=== PATIENT | female | born 1995 | race Caucasian/White ===

== ENCOUNTER → 2024-05-22 07:02 | Outpatient (REF) | payer BC, SELFPAY | LOC: PNTC 07:02 | PROVIDERS: ATTENDING PHYSICIAN Student in an Organized Health Care Education/Training Program | DX: Z36.0 Encounter for antenatal screening for chromosomal anomalies (principal); Z36.82 Encounter for antenatal screening for nuchal translucency | CPT/HCPCS: 36415; 76801; 76813 ==

== ENCOUNTER → 2024-06-18 08:18 | Outpatient (REF) | payer BC, SELFPAY | LOC: PNTC 08:18 | PROVIDERS: ATTENDING PHYSICIAN Student in an Organized Health Care Education/Training Program | DX: O35.5XX0 Maternal care for (suspected) damage to fetus by drugs, not applicable or unspecified (principal) | CPT/HCPCS: 76805 ==

== ENCOUNTER → 2024-08-22 06:59 | Outpatient (REF) | payer BC, SELFPAY | LOC: PNTC 06:59 | PROVIDERS: ATTENDING PHYSICIAN Obstetrics & Gynecology | DX: O35.2 Maternal care for (suspected) hereditary disease in fetus (principal); M06.9 Rheumatoid arthritis, unspecified; O99.213 Obesity complicating pregnancy, third trimester; O35.5XX0 Maternal care for (suspected) damage to fetus by drugs, not applicable or unspecified | CPT/HCPCS: 76816 ==

== ENCOUNTER → 2024-09-19 08:02 | Outpatient (REF) | payer BC, SELFPAY | LOC: PNTC 08:02 | PROVIDERS: ATTENDING PHYSICIAN Obstetrics & Gynecology | DX: Z15.09 Genetic susceptibility to other malignant neoplasm (principal); O35.2XX0 Maternal care for (suspected) hereditary disease in fetus, not applicable or unspecified | CPT/HCPCS: 76816 ==

== ENCOUNTER → 2024-09-20 08:04 | Outpatient (REF) | payer BC, SELFPAY ==
--- NOTE | 2024-09-20 07:28 | PN.DIAED06 ---
Meal Plan - Gestational
- Breakfast
Gestational Diabetes Meal Plan Name: 2000 calories
Breakfast - Total Carbohydrate (grams): 45
Breakfast - Starch Carbohydrate: 2
Breakfast - Fruit Carbohydrate: 0
Breakfast - Milk Carbohydrate: 1
Breakfast - Nonstarchy Vegetables: Yes
Breakfast - Meat/Protein: 1
Breakfast - Fat: 2
- Morning Snack
Morning Snack - Total Carbohydrate (grams): 30
Morning Snack - Starch Carbohydrate: 1
Morning Snack - Fruit Carbohydrate: 0
Morning Snack - Milk Carbohydrate: 1
Morning Snack - Nonstarchy Vegetables: Yes
Morning Snack - Meat/Protein: 0
Morning Snack - Fat: 0
- Lunch
Lunch - Total Carbohydrate (grams): 45
Lunch - Starch Carbohydrate: 1
Lunch - Fruit Carbohydrate: 1
Lunch - Milk Carbohydrate: 1
Lunch - Nonstarchy Vegetables: Yes
Lunch - Meat/Protein: 2
Lunch - Fat: 2
- Afternoon Snack
Afternoon Snack - Total Carbohydrate (grams): 30
Afternoon Snack - Starch Carbohydrate: 1
Afternoon Snack - Fruit Carbohydrate: 1
Afternoon Snack - Milk Carbohydrate: 0
Afternoon Snack - Nonstarchy Vegetables: Yes
Afternoon Snack - Meat/Protein: 1
Afternoon Snack - Fat: 0
- Dinner
Dinner - Total Carbohydrate (grams): 45
Dinner - Starch Carbohydrate: 2
Dinner - Fruit Carbohydrate: 1
Dinner - Milk Carbohydrate: 0
Dinner - Nonstarchy Vegetables: Yes
Dinner - Meat/Protein: 2
Dinner - Fat: 2
- Evening Snack
Evening Snack - Total Carbohydrate (grams): 45
Evening Snack - Starch Carbohydrate: 1
Evening Snack - Fruit Carbohydrate: 1
Evening Snack - Milk Carbohydrate: 1
Evening Snack - Nonstarchy Vegetables: Yes
Evening Snack - Meat/Protein: 1
Evening Snack - Fat: 0
--- NOTE | 2024-09-20 12:23 | PN.DE ---
Diabetes Education
- -
09/20/2024 Diabetes Education for Gestational Diabetes
Patient referred by [facility] for new dx Gestational diabetes
Patient G 1, P 0, edc 11/28/2024.
Provided gestational education booklet and reviewed all aspects of gestational diagnosis. Reviewed her glucose tolerance test results. Reviewed risk factors for gestational diabetes, of which she has 3.
Provided ADA nutrition booklet and reviewed CHO foods, proteins, fats as well as serving sizes and number of servings per meal and snack. Provided 2000 calorie gestational meal plan and reviewed each meal and snack recommended servings. Patient is
able to repeat back appropriate choices.
Patient picked up ordered glucose meter OneTouch Ultra 2. Instructed on steps for testing including site selection for obtaining drop of blood, applying to strip. Instructed to test glucose fasting and 2 hours after each meal. She knows to report
results weekly to [place] .
Patient has my number for further questions.
== END ==
LOC: DES 08:04
PROVIDERS: ATTENDING PHYSICIAN Obstetrics & Gynecology
DX: O24.419 Gestational diabetes mellitus in pregnancy, unspecified control (principal)
CPT/HCPCS: 99078

== ENCOUNTER → 2024-10-17 08:17 | Outpatient (REF) | payer BC, SELFPAY | LOC: PNTC 08:17 | PROVIDERS: ATTENDING PHYSICIAN Obstetrics & Gynecology | DX: Z15.09 Genetic susceptibility to other malignant neoplasm (principal); Z80.0 Family history of malignant neoplasm of digestive organs | CPT/HCPCS: 76816 ==

== ENCOUNTER → 2024-11-14 08:36 | Outpatient (REF) | payer BC, SELFPAY | LOC: PNTC 08:36 | PROVIDERS: ATTENDING PHYSICIAN Obstetrics & Gynecology | DX: O99.210 Obesity complicating pregnancy, unspecified trimester (principal) | CPT/HCPCS: 76816 ==

== ENCOUNTER 2024-11-29 19:27 | Inpatient (IN) | payer BC, SELFPAY ==
[2024-11-29 20:20] VITALS: BMI 37.9
[2024-11-29 20:23] VITALS: BP 134/79
[2024-11-29 20:54] LABS: Glucose - Point of Care 105 mg/dl (70-99)
[2024-11-29 21:15] LABS: % Basophils 0.2 % (0-2); % Eosinophils 0.6 % (0-6); % Immature Granulocytes 0.7 % (0-0.5); % Lymphocytes 19.2 % (20.5-51.1); % Neutrophils 71.3 % (42.2-75.2); Absolute Eosinophils 0.1 10^3/uL (0-0.7); Absolute Immature Granulocytes 0.1 10^3/uL (0-0.05); Absolute Lymphocytes 1.8 10^3/uL (1.2-3.4); Absolute Monocytes 0.8 10^3/uL (0.1-0.6); Absolute Neutrophils 6.7 10^3/uL (1.4-6.5); Hemoglobin 11.2 g/dL (12.0-16.0); Mean Corp Hgb Conc. 33.9 g/dL (33.0-37.0); Mean Corpuscular Hgb 27.9 pg (27.0-31.0); Mean Corpuscular Volume 82.3 fL (81.0-99.0); Mean Platelet Volume 13.1 fL (7.4-10.4); Nucleated Red Blood Cells % 0 %; Platelet Count 170 10^3/uL (130-400); Red Blood Cell Count 4.01 10^6/uL (4.20-5.40); Red Cell Dist. Width 14.5 % (11.5-14.5); White Blood Cell Count 9.5 10^3/uL (4.8-10.8)
[2024-11-29] MEDS: CYTOTEC 25 MICROGRAM VAG (22:58)
[2024-11-30] MEDS: CYTOTEC 50 MICROGRAM PO ×2 (03:05→07:17)
[2024-11-30] MEDS: LR 1000 IV ×4 (03:41→21:59)
[2024-11-30 07:06] LABS: Glucose - Point of Care 71 mg/dl (70-99)
[2024-11-30] MEDS: DELTASONE 5 MG PO (08:17)
[2024-11-30] MEDS: STADOL 1 MG IV (09:23)
[2024-11-30] MEDS: SUBLIMAZE 100 MCG EPIDURAL (12:18)
[2024-11-30] MEDS: FENTANYL/BUPIVACAINE 100 EPIDURAL ×2 (12:23→21:05)
[2024-11-30] MEDS: CYTOTEC PO ×3 (13:29→18:09)
[2024-11-30] MEDS: SOLU-CORTEF 100 MG IV (13:59)
[2024-11-30 17:15] LABS: Glucose - Point of Care 91 mg/dl (70-99)
[2024-11-30] MEDS: PENICILLIN 110 UNITS IV (17:28)
[2024-11-30] MEDS: SOLU-CORTEF 50 MG IV (19:37)
[2024-11-30 21:15] LABS: Glucose - Point of Care 120 mg/dl (70-99)
[2024-11-30] MEDS: PENICILLIN 55 UNITS IV (22:02)
[2024-12-01] MEDS: SOLU-CORTEF IV (02:25)
[2024-12-01] MEDS: PENICILLIN IV (02:26)
[2024-12-01] MEDS: CYTOTEC PO (03:40)
[2024-12-01 06:18] LABS: Hematocrit 30.9 % (37.0-47.0); Hemoglobin 10.5 g/dL (12.0-16.0)
[2024-12-01] MEDS: SENOKOT-S 1 TABLET PO (08:02)
[2024-12-01] MEDS: DELTASONE 10 MG PO (08:02)
[2024-12-01] MEDS: TYLENOL 650 MG PO ×2 (12:37→20:46)
[2024-12-01] MEDS: TUMS CHEWABLE TABLET 400 MG PO (20:47)
[2024-12-02] MEDS: TYLENOL 650 MG PO ×2 (02:19→06:22)
[2024-12-02] MEDS: DELTASONE 10 MG PO (08:18)
[2024-12-02] MEDS: SENOKOT-S 1 TABLET PO (08:18)
[2024-12-04 14:39] LABS: Syphilis/T. pallidum Ab Reflex Negative (Negative)
== END 2024-12-02 11:48 | disposition home or self-care (01) | DRG 807 ==
LOC: LDRP 19:27
PROVIDERS: Obstetrics & Gynecology; ADMITTING PHYSICIAN Obstetrics & Gynecology; FAMILY PHYSICIAN Physician Assistant Medical
PROC: 3E0P7VZ Introduction of Hormone into Female Reproductive, Via Natural or Artificial Opening (ICD-10-PCS; 2024-11-29)
PROC: 0KQM0ZZ Repair Perineum Muscle, Open Approach (ICD-10-PCS; 2024-11-30)
PROC: 10E0XZZ Delivery of Products of Conception, External Approach (ICD-10-PCS; 2024-11-30)
DX: O48.0 Post-term pregnancy (principal); Z37.0 Single live birth; Z3A.40 40 weeks gestation of pregnancy; O77.0 Labor and delivery complicated by meconium in amniotic fluid; O24.420 Gestational diabetes mellitus in childbirth, diet controlled; O99.824 Streptococcus B carrier state complicating childbirth; M06.9 Rheumatoid arthritis, unspecified; O70.1 Second degree perineal laceration during delivery; Z88.6 Allergy status to analgesic agent; Z88.2 Allergy status to sulfonamides
CPT/HCPCS: 88307; 36415; 82962; 83789; 85014; 85018; 85025; 86780; 86850; 86900; 86901